=== PATIENT | female | born 1995 | race Caucasian/White ===

== ENCOUNTER 2020-04-14 14:55 | Outpatient (AMB) | payer MEDICAID, SELFPAY ==
--- NOTE | 2020-04-14 15:06 | UCVISIT ---
Intake Ht./Wt. Decline/Exclusions Patient Declined Height and Weight this visit: No PT Meets exclusion criteria: No Vital Signs 04/14/20 15:21 Height 5 ft 8 in Height Method Measured Weight 66.678 kg Weight Measurement Method Standing Scale BMI 22.3 Temp 99.6 F Temp Source Oral Pulse 108 H Pulse Source Monitor Respiration 16 BP 113/70 Blood Pressure Source Automatic Cuff Blood Pressure Location Right Upper Arm Position Sitting Pulse Oximetry (%) 100 Oxygen Delivery Method Room Air Intake [place] Travel (last 14 days): No [facility] Travel (last 14 days): No Been in Contact w/Anyone Being Evaluated for Coronavirus (last 14 days): No Been in Close Contact w/Anyone Dx w/Coronavirus: No Zika Travel: No Been in contact w/anyone who has been Dx w/Zika Virus: No Been in contact w/anyone sick during travel outside country: No Patient >or equal to 18 years BMI outside of range 18.5-24.9: No Visit Reasons: UC Sore throat Primary Care Provider: MD BARAJAS RAYNALDO Is patient in pain?: Yes Pain Location:: throat Gomez-Pena/Numerical: 10 Pain Scale Used: Numeric (1 - 10) Triage Triage Allergy / Med Rec Allergies No Known Allergies Allergy (Verified 04/14/20 15:23) Medication Reconciliation No Known Home Medications 04/14/20 [History Confirmed 04/14/20] Band Placement: Patient Identification BELL: [id number] Arrival Mode of Arrival: Private Vehicle Method of Arrival: Ambulatory Accompanied By: Self Prehospital Treatment: none PCP or OBGYN visit in last 3 months: No Language Preferred Language: Bulgarian Digital Traffic Coordinator Required: No Female History Now: No Last Menstrual Period: 04/06/20 : No Social History Alcohol / Drugs Hx Alcohol Use: No Hx Substance Use: No Safety Do You Feel Safe at Home: Yes Authorities Contacted: N/A Grace Fall Scale Special Populations Patient Comatose, Paralyzed or Immobile: No Patient Under the Age of 44 Years Old: No Assessment History of falling; immediate or within 3 months: No Secondary diagnosis: No Ambulatory aid: None IV Infusion: No Gait/Transferring: Normal/bedrest/immobile Mental Status: Oriented to own ability Score Score: 0 Risk Level/Action Risk Level: Low Risk Action: Good Basic Nursing Care Fall Star Level 1 Fall Star Level 1: Yes Patient Education Topic Education Topics: Plan of Care Teaching Recipient: Patient Readiness, Motivation to Learn: Active Methods: Verbal instruction Educ Materials Suggested by INFO Button/Rx Monograph Given: No Response: Verbalize Understanding Digital Traffic Coordinator Required: No Population Health [facility] Hx Congestive Heart Failure: No Hx Diabetes Mellitus Type 1: No Hx Diabetes Mellitus Type 2: No Hx Renal Disease: No Hx Chronic Obstructive Pulmonary Disease (COPD): No Past Medical History Reviewed and agree with Nursing documentation.: Yes Past Medical History History Provided By: Patient Past Medical History: No Cardiac Medical History Hx Congestive Heart Failure: No Endocrine Medical History Hx Diabetes Mellitus Type 1: No Hx Diabetes Mellitus Type 2: No Genitourinary Medical History Hx Renal Disease: No Respiratory Medical History Hx COPD: No HPI Throat Infection Current symptoms: Reports dysphagia HPI Comments Details: 24-year-old female presents to urgent care with complaint of throat pain, states the pain is worse with speaking and swallowing. Patient also states that she has not been able to have anything to eat for the past 3 days. She denies any alleviating symptoms. She denies any cough, fever or chills. Review of Systems (UC) Const Constitutional: Reports system reviewed and no additional complaints, except as documented ENT Ears. Nose, Mouth, and Throat: Reports change in voice, Reports dysphagia, Reports odynophagia, Reports sore throat and Reports throat swelling Card Cardiovascular: Reports system reviewed and no additional complaints, except as documented Resp Respiratory: Reports system reviewed and no additional complaints, except as documented GI Gastrointestinal: Reports dysphagia and Reports odynophagia Musc Musculoskeletal: Reports system reviewed and no additional complaints, except as documented Niraj/Lymph Hematologic/Lymphatic: Reports lymphadenopathy Aller/Immun Allergic/Immunologic: Reports throat swelling Exam (UC) Limitations: no limitations General Appearance: alert, in no apparent distress, comfortable, cooperative, healthy appearing, well developed and well groomed ENT exam: Present lymphadenophathy Throat exam: tonsillar erythema, tonsillomegaly, tonsillar exudate, L peritonsillar mass and muffled voice SPO2%: 100% SPO2 type: Room Air SPO2% Normal/Abnormal: Normal Respiratory exam: Present normal respiratory effort Cardiovascular exam: Present regular rate and regular rhythm Office Procedures UC Level of Care Nursing/Assessment/Reassessment Patient Status: Established Patient Nursing Assessment/Reassessment: Triage Asessment, Initial Vital Signs and RN General Assessments Coordination of Care: Lab/Imaging Orders, Specimen Collection and DC Instructions Moderate 3 or more sets Established Patient Charge Established Patient Point Assignment: 70 Established Patient Point Assignment: EP Level 2 (40-75) Procedures: Pulse Ox reading: Yes UC Strep Screen: Yes UC Rapid Strep Bedside Test Rapid Strep: Positive UC Refer Patient to ED Yes (referral paperwork completed and sent with pt to the er) Office Meds ketorolac Performing Provider: Carson Morales PA-C Administered by: Milla Wan RN on 04/14/20 15:37 Dose Route Admin Location Lot Number Expiration Date ND It Infrastructure Manager 60 mg IM ruoq penicillin G benzathine Performing Provider: Carson Morales PA-C Administered by: Milla Wan RN on 04/14/20 15:37 Dose Route Admin Location Lot Number Expiration Date ND It Infrastructure Manager 1.2 mmu IM luoq Supplemental Info Patient was referred to the ED for peritonsillar abscess, patient states that she has a history of IV drug use and she does not think they will be able to give her any IV meds in the ED, she is requesting a shot of IM penicillin here. I counseled the patient that I would prefer if she went to the ED for further care and still gave her a referral to the ED. Patient promises that if she does not feel better that she will go to the ED immediately. Assessment and Plan Assessment & Plan (1) Sore throat: Plan - Carson Morales PA-C: Please go to the ED for further care if your symptoms do not improve in 24 hours (2) Peritonsillar abscess determined by examination: Status: Acute Plan - Carson Morales PA-C: Please go to the ED for further care if your symptoms do not improve in 24 hours (3) Acute streptococcal pharyngitis: Status: Acute Plan - Carson Morales PA-C: Please go to the ED for further care if your symptoms do not improve in 24 hours Plan Details Other Orders: Orders: UC ketorolac 60 mg/2 mL intramuscular solution Today UC penicillin G benzathine 1,200,000 unit/2 mL intramuscular syringe Today UC Rapid Strep Today UC Refer Patient to ED Today Primary Care Provider: MD BARAJAS RAYNALDO Instructions: ED Peritonsillar Abscess ED Pharyngitis Strep Confirmed ED Peritonsillar Inf Strep Throat Additional Information PA/BATCH MIXER Supervising Physician: Zeus Khan DC Evaluation Discharge Information Seen, Treated and Released by Provider: No Left Prior to Receiving Discharge Instructions: No Transfer to Outside Facility: No Vital Signs Vitals Signs N/A: Yes Medication Medication Given this Visit: Yes Reaction to Medication: No Discharge Information Condition on Discharge: Stable Mode of Discharge: Ambulatory Discharge Transportation: Private Vehicle Instructions Digital Traffic Coordinator Required: No Discharge Instructions Given To: Patient Was Follow up Care Ordered: Yes Verbalizes Understanding of Discharge Instructions: Yes [facility] information card provided?: No Patient plan follow up w/PCP for [employer]: No Discharge Comment Discharge Comment: pt is being referred to ED for further eval of of peritonsilar abscess - pt does not wish to go now to the ED - pt advised that if she develops any further difficulty swallowing or breathing she must go to ED - pt states she understands and that she will go to ED for worsening symptoms
[2020-04-14 15:21] VITALS: BP 113/70; PULSE 108; RESP 16; TEMP 37.6; O2SAT 100; BMI 22.3
== END 2020-04-14 15:54 | disposition home or self-care (01) ==
PROVIDERS: Visit Provider Physician Assistant